=== PATIENT | male | born 1970 | race Caucasian/White ===

== ENCOUNTER 2017-09-17 14:00 | Emergency (ER) | payer SELFPAY ==
[~2017-09-17] VITALS: Ht 193 cm; Wt 104.3 kg
[~2017-09-17 14:00] MED LIST: AZITHROMYCIN250 MG1 PO; CLONAZEPAM0.5 MG PO; FLEXERIL10 MG PO; GUAIFENESIN WI120 ML PO; LEVAQUIN500 MG PO; MEDROL DOSEPAK4 MG PO; METHADONE10 MG PO; NAPROSYN500 MG PO; OXYCODONE10 MG PO; PERCOCET 5/31 TABLET PO; PREDNISONE10 M1 PO; PREDNISONE50 MG PO; PRILOSEC20 MG PO; ROBITUSSIN AC,T10 ML PO
[2017-09-17 15:06] LABS: HEMATOCRIT 40.3 % (38.0-50.0); MCHC 34.7 G/DL (30.0-36.0); MCV 86.5 FL (86-99); PLATELET COUNT 202 K/uL (156-360); RBC DIS.WIDTH-CV 12.3 % (11.8-14.6); RBC DIS.WIDTH-SD 39.2 % (39-53); RED BLOOD COUNT 4.66 M/uL (4.00-5.50); WHITE BLOOD COUNT 14.3 K/uL (4.1-10.2)
[2017-09-17 15:16] LABS: CHLORIDE 103 mEq/L (99-109); POTASSIUM 3.8 mEq/L (3.7-5.4); SODIUM 135 mEq/L (136-147)
[2017-09-17 15:18] LABS: GLUCOSE 92 mg/dL (70-99)
[2017-09-17 15:22] LABS: CREATININE 0.8 mg/dL (0.6-1.3); GFR ESTIMATE (CALCULATED) > 59 mL/min/ (58.99-99999)
[2017-09-17 15:23] LABS: UREA NITROGEN (BUN) 9 mg/dL (9-23)
[2017-09-17 15:27] LABS: TROP-I INTERPRETATION NEGATIVE; TROPONIN-I < 0.01 ng/mL (0.0-0.30)
[2017-09-17 15:42] LABS: APPEARANCE CLEAR ((CLEAR)); BILIRUBIN NEGATIVE; BLOOD NEGATIVE; COLOR STRAW ((YELLOW)); GLUCOSE (STRIP) NEGATIVE; KETONES NEGATIVE; LEUKOCYTES NEGATIVE; NITRITE NEGATIVE; PROTEIN (STRIP) NEGATIVE; SPECIFIC GRAVITY 1.003 (1.000-1.030); UROBILINOGEN 0.2 MG/DL (0.2-1.0)
[2017-09-17 17:50] VITALS: BP 127/71
== END 2017-09-17 17:51 | disposition home or self-care (01) ==
LOC: EME 14:00
PROVIDERS: Physician Assistant
DX: R42 Dizziness and giddiness (principal); F17.200 Nicotine dependence, unspecified, uncomplicated
CPT/HCPCS: 80048; 81003; 84484; 85027; 93005; 99281; 99285